=== PATIENT | female | born 1985 | race Caucasian/White ===

== ENCOUNTER 2018-05-11 06:34 | Day surgery (SDC) | payer OTHER ==
[2018-05-11] VITALS (11 sets, daily range): BP systolic 107–125; BP diastolic 59–79; PULSE 17–89; RESP 15–18; Ht 152.4 cm; Wt 78.6 kg
[~2018-05-11] VITALS: Ht 152.4 cm; Wt 78.6 kg
[2018-05-11] MEDS ORDERED: LIDOCAINE 2% (SDV) 5 ML INJ ONE (07:00)
[2018-05-11] MEDS ORDERED: RANI150T35 PO (07:46)
[2018-05-11] MEDS ORDERED: SOD CHLORIDE 0.9% 1,000 ML IV SCH (08:00)
[2018-05-11] MEDS ORDERED: CEFAZOLIN 2 GM/50 ML (PMX) 50 ML IVPB ONE (08:00)
--- NOTE | 2018-05-11 09:33 | PREAC ---
Date/Time of Note Date/Time of Note DATE: 05/11/18 TIME: 09:30 Anesthesia Eval and Record Evaluation Time Pre-Procedure Interview DATE: 05/11/18 TIME: 09:30 Age 32 Sex female NPO: 8 hrs Preoperative diagnosis removal of subcutanous control device Planned procedure removal of subcutanous control device Past Medical History Past Medical History: Includes GI: GERD, Obesity Surgery & Anesthesia Issues No known issue Meds Anticoagulation: No Beta Flor within 24 hr: No Reason Beta Flor not given: Pt. not on B-Flor Reported Medications Ranitidine Hcl* (Zantac*) 150 Mg Tablet, 150 MG PO BID, #60 TAB 05/11/18 Current Medications Sodium Chloride 1,000 ml @ 75 mls/hr [id number] IV ; Start 05/11/18 at 08:00; Stop 05/11/18 at 21:19 Meds reviewed: Yes Allergies Coded Allergies: No Known Drug Allergies (Unverified Allergy, Unknown, 05/11/18) Allergies Reviewed: Yes Labs/Studies Labs Reviewed: Reviewed by anesthesiologist Result Diagram: 05/11/18 0724 05/11/18 0724 Laboratory Tests 05/11/18 07:24 test: Negative Pre-procedure Exam Last vitals Vital Signs Date Temp Pulse Resp B/P (MAP) Pulse Ox O2 O2 Flow FiO2 Time Delivery Rate 05/11/18 98.7 68 16 113/59 96 Room Air 06:41 (77) Airway: Adequate mouth opening, Adequate thyromental dist Mallampati: Mallampati III Teeth: Normal Lung: Normal Heart: Normal ASA Physical Status ASA physical status: 2 Emergency: None Pre-operative Attestations Prior to commencing anesthesia and surgery, the patient was re-evaluated, there was verification of: *The patient's identity *The results of appropriate recent lab work and preoperative vital signs *The above evaluation not changing prior to induction *Anesthetic plan, risk benefits, alternative and complications discussed with patient/family; questions answered; patient/family understands, accepts and wi shes to proceed. DUSTIN POWELL DO May 11, 2018 09:33
[2018-05-11] MEDS ORDERED: MIDAZOLAM 1 MG/ML 2 ML INJ ONE (09:54)
[2018-05-11] MEDS ORDERED: ETOMIDATE 20 MG INJ ONE (09:59)
[2018-05-11] MEDS ORDERED: HYDROmorphONE 1 MG/5 ML IV SYRINGE IV PRN ×2 (10:00)
[2018-05-11] MEDS ORDERED: ONDANSETRON 4 MG INJ IV PRN (10:00)
[2018-05-11] MEDS ORDERED: CEFAZOLIN 1 GM INJ ONE (10:12)
[2018-05-11] MEDS ORDERED: ONDANSETRON 4 MG INJ ONE (10:14)
[2018-05-11] MEDS ORDERED: BUPIVACAINE 0.5%/EPI (SDV) 30 ML INJ ONE (10:18)
[2018-05-11] MEDS ORDERED: FENTAnyl 50 MCG/ML VIAL ONE (10:22)
--- NOTE | 2018-05-11 10:56 | PAC ---
Date/Time of Note Date/Time of Note DATE: 05/11/18 TIME: 10:55 Post-Anesthesia Notes Post-Anesthesia Note Last documented vital signs Vital Signs Date Temp Pulse Resp B/P (MAP) Pulse Ox O2 O2 Flow FiO2 Time Delivery Rate 05/11/18 98 70 15 115/69 96 Room Air 1055 Activity: WNL Respiratory function: WNL Cardiovascular function: WNL Mental status: Baseline Pain reasonably controlled: Yes Hydration appropriate: Yes Nausea/Vomiting absent: Yes DUSTIN POWELL DO May 11, 2018 10:56
--- NOTE | 2018-05-11 11:04 | SIPON ---
Date/Time of Note Date/Time of Note DATE: 05/11/18 TIME: 10:47 Operative Report Preoperative Diagnosis Subcutaneous control device left upper extremity Postoperative Diagnosis Postop diagnosis same Operation/Procedure Performed Removal of subcutaneous control device left upper extremity under fluoroscopic guidance Surgeon see signature line product safety technical assistant Dr Carrillo Anesthesia: general Estimated blood loss: 0 - 10 ml's Transfusion Required none Specimen Subcutaneous control device gross only Grafts/Implants none Complications none CHRISTINE DUNLAP MD May 11, 2018 10:59
--- NOTE | 2018-05-11 13:17 | OPR ---
DATE OF OPERATION: 05/11/2018 PREOPERATIVE DIAGNOSIS: control device in subcutaneous space of the left upper arm. POSTOPERATIVE DIAGNOSIS: control device in subcutaneous space of the left upper arm. OPERATION PERFORMED: Removal of control device in subcutaneous location of left upper arm unde r fluoroscopic guidance. ANESTHESIA: General. ANESTHESIOLOGIST: Black Gerard DO SURGEON: Amos Perkins MD BURNER TECHNICIAN: Zeynep Carrillo MD INDICATIONS FOR PROCEDURE: The patient is a 32-year-old female who previously had an implanted control device in subcutaneous space of her left upper extremity. She requested removal. She conse nted and was scheduled for surgery. DESCRIPTION OF PROCEDURE: The patient was brought to the operating theater, placed under general ane sthesia. The left upper extremity was prepped and draped in usual sterile fashion. Initial crown ironer operator vi ew under fluoroscopy revealed the location of the subcutaneous device. This area was marked and then an approximately 3 cm longitudinal incision was made directly over the site. Subcutaneous tissue wa s dissected with cautery. Within the subcutaneous space, the device was identified. It was essentia lly dissected from the surrounding tissue, removed and sent for gross pathologic analysis. The wound was then irrigated. Minimal bleeding was controlled with cautery. The area was then infiltrated wi th 0.5% Marcaine local anesthetic with epinephrine and the skin was then reapproximated with 5-0 PDS sutures in subcuticular fashion and benzoin and Steri-Strips were applied. The patient tolerated the procedure well. The estimated blood loss was 5 mL. There were no complications. The patient was t ransported in stable condition to the recovery room. Dictated By: AMOS DUNAWAY/ALANA Conf#: [id number] DID#: [id number]
== END 2018-05-11 12:19 | disposition home or self-care (01) ==
LOC: SDS 06:34
PROVIDERS: ATTEND Surgery Surgical Oncology
DX: Z30.46 Encounter for surveillance of implantable subdermal contraceptive (principal); E66.9 Obesity, unspecified; Z68.33 Body mass index [BMI] 33.0-33.9, adult
CPT/HCPCS: 11982; 73060; 80053; 84703; 85025; 85610; 85730; 88300; J2250; J2405; J3010; Z7512; Z7610; J0690